=== PATIENT | female | born 1985 ===

== ENCOUNTER 2017-02-02 00:06 | Emergency (ER) | payer MEDICARE ==
--- NOTE | 2017-02-02 00:46 | ED PDOC ---
Arrival/HPI - General Time Seen by Provider: 02/02/17 00:39 Historian: Patient - History of Present Illness Narrative History of Present Illness (Text): 02/02/17 00:46 Hawa Watts is a 31 year old female, whose past medical history includes deafness, who presents to the ED accompanied by mother complaining of right knee pain radiating down her leg tonight. Patient states pain has currently improved. Patient denies any weakness/numbness in the extremity, recent trauma/ injury, chest pain, shortness of breath, or any other complaints. Time/Duration: Other (tonight) Symptom Onset: Gradual Symptom Course: Improving Activities at Onset: Rest, Light Context: Sitting, Home Past Medical History - Provider Review Nursing Documentation Reviewed: Yes Family/Social History - Physician Review Nursing Documentation Reviewed: Yes Family/Social History: Unknown Family HX Allergies/Home Meds Allergies/Adverse Reactions: Allergies No Known Allergies Allergy (Unverified 02/02/17 00:50) Review of Systems - Physician Review All systems were reviewed & negative as marked: Yes - Review of Systems Constitutional: Normal. absent: Fevers Eyes: Normal ENT: Normal Respiratory: Normal. absent: SOB, Cough Cardiovascular: Normal. absent: Chest Pain Gastrointestinal: Normal. absent: Abdominal Pain, Diarrhea, Nausea, Vomiting Genitourinary Female: Normal. absent: Dysuria, Frequency, Hematuria, Urine Output Changes Musculoskeletal: Other (+right knee pain). absent: Back Pain, Neck Pain Skin: Normal. absent: Rash Neurological: Normal. absent: Headache, Dizziness Endocrine: Normal Hemo/Lymphatic: Normal Psychiatric: Normal Physical Exam Vital Signs Reviewed: Yes Vital Signs Temp Pulse Resp BP Pulse Ox 02/02/17 01:10 97.4 F L 81 20 115/78 98 Temperature: Afebrile Blood Pressure: Normal Pulse: Regular Respiratory Rate: Normal Appearance: Positive for: Well-Appearing, Non-Toxic, Comfortable Pain Distress: None Mental Status: Positive for: Alert and Oriented X 3 - Systems Exam Head: Present: Atraumatic, Normocephalic Pupils: Present: PERRL Extroacular Muscles: Present: EOMI Conjunctiva: Present: Normal Mouth: Present: Moist Mucous Membranes Neck: Present: Normal Range of Motion Respiratory/Chest: Present: Clear to Auscultation, Good Air Exchange. No: Respiratory Distress, Accessory Muscle Use Cardiovascular: Present: Regular Rate and Rhythm, Normal S1, S2. No: Murmurs Abdomen: Present: Normal Bowel Sounds. No: Tenderness, Distention, Peritoneal Signs Back: Present: Normal Inspection Upper Extremity: Present: Normal Inspection. No: Cyanosis, Edema Lower Extremity: Present: Normal Inspection, NORMAL PULSES, Normal ROM, Neurovascularly Intact, Capillary Refill < 2 s. No: Edema, CALF TENDERNESS, Cyanosis, Johnny's Sign, Tenderness, Swelling, Erythema, Deformity, Temperature Abnormalties Neurological: Present: GCS=15, CN II-XII Intact, Speech Normal Skin: Present: Warm, Dry, Normal Color. No: Rashes Psychiatric: Present: Alert, Oriented x 3, Normal Insight, Normal Concentration Medical Decision Making ED Course and Treatment: 02/02/17 00:46 Impression: 31 year old female c/o right leg radiating down her leg tonight. Differential Diagnosis included but are not limited to: strain Plan: -- XR Right Leg -- US Duplex Lower Extremities -- Reassess and disposition Progress Notes: 02/02/17 02:13 Reviewed sono, US Duplex Lower Extremities shows no evidence of DVT. 02/02/17 02:35 Reviewed radiology, XR Right Knee shows no acute fracture. Re-evaluation. Patient feels better. Discussed results and plan with patient who expresses understanding. All questions answered and there is agreement with the plan to discharge home with instructions. Patient stable for discharge. Return if symptoms persist or worsen. - RAD Interpretation Radiology Orders: 02/02/17 00:50 KNEE W PATELLA RIGHT 3 VIEW [RAD] Stat 02/02/17 00:52 DUPLEX LOWER EXTRM VEIN RIGHT [US] Stat - Scribe Statement The provider has reviewed the documentation as recorded by the Scribcindy Gamble All medical record entries made by the Scribe were at my direction and personally dictated by me. I have reviewed the chart and agree that the record accurately reflects my personal performance of the history, physical exam, medical decision making, and the department course for this patient. I have also personally directed, reviewed, and agree with the discharge instructions and disposition. Disposition/Present on Arrival - Present on Arrival Any Indicators Present on Arrival: No - Disposition Have Diagnosis and Disposition been Completed?: Yes Diagnosis: Knee pain, Muscle strain Disposition: HOME/ ROUTINE Disposition Time: 02:37 Patient Plan: Discharge Patient Problems: Current Active Problems Problem Status Onset Knee pain Acute Muscle strain Acute Condition: GOOD Discharge Instructions (ExitCare): Muscle Strain (ED), Knee Pain (ED) Additional Instructions: rest/no strenuous physical activity/medication as prescribed/follow up with your doctor this week Prescriptions: Naproxen [Naprosyn Tab] 375 mg PO BID PRN #14 tab PRN Reason: Pain, Moderate (4-7)
[2017-02-02 01:23] VITALS: BP 115/78; PULSE 81; RESP 20; TEMP 97.4; O2SAT 98
--- NOTE | 2017-02-02 09:49 | RAD ---
PROCEDURE: Right Knee Radiographs. HISTORY: pain COMPARISON: None. FINDINGS: BONES: No evidence of acute displaced fracture nor dislocation JOINTS: Joint spaces preserved. No significant osteoarthritis JOINT EFFUSION: Suspect small suprapatellar joint effusion OTHER FINDINGS: None. IMPRESSION: No evidence of acute displaced fracture nor dislocation. Suspect small suprapatellar joint effusion If symptoms persist or occult fracture suspected clinically recommend followup CT scan or MRI.
--- NOTE | 2017-02-02 14:30 | US ---
PROCEDURE: Right lower extremity venous US HISTORY: Leg pain and swelling. Evaluate for DVT. PHYSICIAN(S): Dez Hand M.D. TECHNIQUE: Duplex sonography and color-flow Doppler with graded compression were used to evaluate the deep venous system of the right lower extremity. FINDINGS: The visualized deep venous system of the right lower extremity is sonographically normal and compressible. Normal waveforms and augmentation are seen. There is no sonographic evidence for deep venous thrombosis in the visualized segments of the right lower extremity. IMPRESSION: 1. No sonographic evidence for deep venous thrombosis in the visualized segments of the right lower extremity.
== END 2017-02-02 05:19 | disposition home or self-care (01) ==
LOC: ED 00:06
DX: S86.911A Strain of unspecified muscle(s) and tendon(s) at lower leg level, right leg, initial encounter (principal); X58.XXXA Exposure to other specified factors, initial encounter; Y93.9 Activity, unspecified; Y92.9 Unspecified place or not applicable; M25.561 Pain in right knee